=== PATIENT | female | born 1985 | race Two or more races ===

== ENCOUNTER → 2020-04-25 09:28 | Outpatient (BNVA) | payer OTHER, SELFPAY | PROVIDERS: PCP Nurse Practitioner Family; Referring Provider Nurse Practitioner Family; Visit Provider Advanced Practice Midwife | DX: Z76.89 Persons encountering health services in other specified circumstances (principal) ==

== ENCOUNTER 2020-05-03 16:48 | Emergency (ER) | payer OTHER, SELFPAY | END 2020-05-03 18:51 | disposition left against medical advice (07) | LOC: HO.ED 20:12 | PROVIDERS: Emergency Provider Emergency Medicine | DX: R42 Dizziness and giddiness (principal); R51.9 Headache, unspecified | CPT/HCPCS: 99281 ==

== ENCOUNTER 2020-06-18 15:59 | Outpatient (REF) | payer OTHER, SELFPAY | END 2020-06-18 16:00 | disposition home or self-care (01) | LOC: HO.LAB 15:59 | PROVIDERS: Visit Provider Internal Medicine | DX: Z20.828 Contact with and (suspected) exposure to other viral communicable diseases (principal) | CPT/HCPCS: C9803; U0003 ==

== ENCOUNTER 2020-06-18 16:25 | Emergency (ER) | payer OTHER, SELFPAY ==
[2020-06-18 16:33] VITALS: BP 132/80; PULSE 85; RESP 16; TEMP 36.8; O2SAT 98; BMI 24.1
--- NOTE | 2020-06-18 16:35 | ED.GENADULT ---
HPI - General Adult General Chief complaint: General Medical Stated complaint: COVID SYMPTOMS Time Seen by Provider: 06/18/20 16:35 Source: patient Mode of arrival: ambulatory Limitations: no limitations History of Present Illness HPI narrative: 35 y/o female with history of anxiety/depression presenting with 2 days of COVID-19 symptoms including: dry cough, headaches, body aches, generalized weakness and fatigue. She also reports chills and low grade fever of 99. She took Tylenol with improvement in her symptoms. She had recent exposure to COVID-19 from her ex-boyfriend. She denies shortness of breath, difficulty breathing, or chest pain. Patient reports being seen at the outpatient testing facility earlier today for COVID-19 testing and was swabbed. She wanted to be evaluated here and discuss treatment options for possible COVID. Related Data Previous Rx's Medication Instructions Recorded hydrocodone-homatropine 5 ml PO Q6H PRN #60 ml 06/18/20 ibuprofen 600 mg PO Q8H PRN #20 tab 06/18/20 Allergies Allergy/AdvReac Type Severity Reaction Status Date / Time No Known Allergies Allergy Mild NOT Verified 04/25/20 09:51 APPLICABLE Review of Systems Review of Systems: Constitutional: + Fever, + Chills ENT/Mouth: + sore throat, No Rhinorrhea, No Swallowing Difficulty Eyes: + Eye Pain, No Swelling, No Redness Cardiovascular: No Chest Pain, No SOB Respiratory: + Cough, No Sputum, No Wheezing, No dyspnea Gastrointestinal: No Nausea, No Vomiting, No Diarrhea, No abdominal Pain Musculoskeletal: No joint pain, + Myalgias Skin: No Skin Lesions, No rash Neuro: + Weakness, No Numbness, No Dizziness, + Headache Psych: + Anxiety/Panic, No Depression Heme/Lymph: No Bruising, No Lymphadenopathy PMFSH Past Medical History Attestation statement: The following information was validated with the patient. Medical History Anxiety Breast lump Depression Surgical History Hx of breast lump removal Social History Social History Alcohol intake: never Smoking Status: Never smoker Advance Directives: No Advance Directives Information Provided: Yes Gender identity: female Physical Exam Vital Signs: Vital Signs: Last Vital Signs Temp 98.3 F 06/18/20 16:33 Pulse 85 06/18/20 16:33 Resp 16 06/18/20 16:33 BP 132/80 06/18/20 16:33 Pulse Ox 98 06/18/20 16:33 Body Mass Index 24.1 Appearance: Alert. Oriented X3. No acute distress. ENT: Pharynx normal. Neck: Normal inspection. Neck supple. CVS: Normal heart rate and rhythm. Pulses normal. Respiratory: No respiratory distress. Breath sounds normal. Skin: Skin warm and dry. Normal skin color. Normal skin turgor. No rashes. Extremities: No lower extremity edema. Neuro: Oriented X 3. Non-focal Course Course Course Narrative: 35 yo female presenting with mild COVID symptoms. Vitals are stable, lungs are clear. We discussed her likelihood of positive COVID infection given her known exposure and symptom presentation. She was counseled on management and warning signs to return. No need to repeat COVID test given she was just swabbed today. She is stable for discharge. Critical Care Time Critical Care Time Critical Care Time: No Discharge Plan Discharge Clinical Impression: Acute viral syndrome Patient Disposition: Home, Self-Care Instructions: COVID-19 (Coronavirus Disease 2019) (ED) Additional Instructions: Your vital signs were normal today and your lungs were clear. Given your history it is likely your symptoms are a result of COVID-19. We will call you with the results of your test within the next 7 days. Until then, assume you are positive. Do not go out in public. Wear your mask. Was your hands frequently and disinfected surfaced in the home often. Take Tylenol as needed for fevers, muscle aches, and pains. Take over the counter cold/flu medications as needed for your symptoms. If you develop shortness of breath, difficulty breathing, chest pain or any other concerning symptom come back to the ER for further evaluation. Prescriptions: New ibuprofen 600 mg tablet 600 mg PO Q8H PRN (Reason: pain) Qty: 20 RF: 0 hydrocodone-homatropine 5-1.5 mg/5 mL syrup 5 ml PO Q6H PRN (Reason: cough) Qty: 60 RF: 0
== END 2020-06-18 17:37 | disposition home or self-care (01) ==
LOC: HO.ED 16:38
PROVIDERS: Emergency Provider Internal Medicine
DX: B34.9 Viral infection, unspecified (principal); R05 Cough; R50.9 Fever, unspecified; M79.10 Myalgia, unspecified site; R51.9 Headache, unspecified; F41.9 Anxiety disorder, unspecified; F33.1 Major depressive disorder, recurrent, moderate
CPT/HCPCS: 99283

== ENCOUNTER 2020-07-08 17:06 | Outpatient (REF) | payer OTHER, SELFPAY | END 2020-07-08 17:07 | disposition home or self-care (01) | LOC: HO.LAB 17:06 | PROVIDERS: Visit Provider Internal Medicine | DX: Z20.828 Contact with and (suspected) exposure to other viral communicable diseases (principal) | CPT/HCPCS: C9803; U0003 ==

== ENCOUNTER 2020-09-09 14:08 | Outpatient (REF) | payer OTHER, SELFPAY ==
--- NOTE | ~2020-09-09 | US_ITS ---
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 COMPARISON: Targeted ultrasound 03/11/2020 (new nodule 9:00 not previously described), 09/04/2019, 11/25/2018 (initial nodule 8:00); baseline mammography 11/25/2018. TECHNIQUE: Ultrasound left breast is targeted to the anterior medial periareolar and retroareolar breast. Grayscale imaging and color Doppler are performed without and with harmonics. FINDINGS: The nodule for follow-up 8:00 position 1 cm from nipple is similar in size and contour. There is no interval growth. Today's measurements are 0.8 x 0.5 x 0.4 cm compared with initial measurements 1.0 x 0.8 x 0.7 cm on ultrasound 11/25/2018. The other nodule for follow-up seen most recently 9:00 position 1 cm from nipple is also stable measuring 1.3 x 1.1 x 0.5 cm compared with initial measurements 1.3 x 1.1 x 0.5 cm on ultrasound 03/11/2020. There is no interval focal suspicious finding. No focal architectural abnormality or duct ectasia. No hyperemia. Results are discussed with the patient at time of visit. US/US breast LT limited IMPRESSION: Nodularity 8:00 to 9:00 position stable from prior study. ASSESSMENT: BI-RADS 3: Probably Benign RECOMMENDATION: Targeted left breast ultrasound in 6 months.
== END 2020-09-09 14:09 | disposition home or self-care (01) ==
LOC: HO.MAMMO 14:08
PROVIDERS: Visit Provider Advanced Practice Midwife
DX: N63.25 Unspecified lump in the left breast, overlapping quadrants (principal)
CPT/HCPCS: 76642

== ENCOUNTER 2020-11-15 12:00 | Outpatient (REF) | payer OTHER, SELFPAY ==
[2020-11-15 12:19] LABS: COVID-19 Test Negative (Negative)
== END 2020-11-15 12:01 | disposition home or self-care (01) ==
LOC: HO.LAB 12:00
PROVIDERS: Visit Provider Internal Medicine
DX: Z20.822 Contact with and (suspected) exposure to COVID-19 (principal)
CPT/HCPCS: 36415; 87635; C9803

== ENCOUNTER 2020-12-09 16:56 | Emergency (ER) | payer OTHER, SELFPAY ==
--- NOTE | ~2020-12-09 | XR_ITS ---
EXAMINATION: XR LUMBOSACRAL SPINE CLINICAL INFORMATION: Back pain. COMPARISON: None TECHNIQUE: Three views of the lumbosacral spine. FINDINGS: Normal vertebral body alignment. The lumbar lordosis is maintained. No acute fracture or subluxation. No loss of vertebral body or intervertebral disc height. No lytic or blastic osseous lesion. No abnormal soft tissue calcification. Bilateral facet arthropathy at L5-S1. XR/XR lumbar spine 2-3V IMPRESSION: Bilateral facet arthropathy at L5-S1.
[2020-12-09 17:24] VITALS: BP 112/73; PULSE 79; RESP 20; TEMP 36.6; O2SAT 99; BMI 23.8
--- NOTE | 2020-12-09 17:52 | ED.BACK ---
HPI - Back Pain/Injury General Chief Complaint: Back Pain/Injury Stated Complaint: back pain Source: patient Mode of arrival: ambulatory Limitations: no limitations History of Present Illness HPI Narrative: 35-year-old female with chronic lower back pain presents with lower back pain exacerbation. She states that she was walking through a small space and felt some sharp pulling in her back and now is having a difficult time standing straight up. She does not describe any symptoms indicating cauda equina, denies fevers, chills, chest pain or pressure, palpitations, shortness of breath, loss of sensation to extremities, loss of balance, abdominal pain, abdominal distention, dysuria, hematuria, and any other concerning symptoms. MD elicited complaint: back pain and back injury Pertinent past history: prior back pain Onset (ago): day(s) (One) Timing: constant Severity: severe Pain scale (0-10): 10 Similar Symptoms Previously: Yes Quality: sharp, aching and spasming Location: lumbar spine Radiation: none Exacerbating factors: movement, walking and lifting Relieving factors: none Context: turning/twisting Associated symptoms: denies other symptoms Treatments prior to arrival: NSAIDS Work related injury: No Related Data Previous Rx's Medication Instructions Recorded hydrocodone-homatropine 5 ml PO Q6H PRN #60 ml 06/18/20 ibuprofen 600 mg PO Q8H PRN #20 tab 06/18/20 cyclobenzaprine 10 mg PO TID PRN #14 tab 12/09/20 ibuprofen 600 mg PO Q6H PRN #60 tab 12/09/20 Allergies Allergy/AdvReac Type Severity Reaction Status Date / Time No Known Allergies Allergy Mild NOT Verified 12/09/20 17:24 APPLICABLE Review of Systems Review of Systems: Constitutional: No Fever, No Chills ENT/Mouth: No Ear Pain, No Hoarseness, No sore throat Eyes: No Eye Pain, No Swelling, No Redness, No Foreign Body Cardiovascular: No Chest Pain, No SOB Respiratory: No Cough, No Dyspnea Gastrointestinal: No Nausea, No Vomiting, No Diarrhea, No abdominal Pain Genitourinary: No Dysuria, No Hematuria Musculoskeletal: positive lower back pain, No Myalgias, No Joint Swelling Skin: No Skin lacerations, No rash Neuro: No Weakness, No Numbness, No Paresthesias, No Loss of Consciousness, No Dizziness, No Headache Psych: No Anxiety/Panic, No Depression Heme/Lymph: no easy bruising, no Lymphadenopathy Endocrine: No Polyuria, No Polydipsia Yes all other systems are reviewed and are negative [facility] Past Medical History Attestation statement: The following information was validated with the patient. Source: old records reviewed Medical History Anxiety Breast lump Depression Surgical History Hx of breast lump removal Social History Social History Alcohol intake: unknown Advance Directives: No Advance Directives Information Provided: No Patient : No Gender identity: female Physical Exam Vital Signs: Vital Signs: Last Vital Signs Temp 98.9 F 12/09/20 18:12 Pulse 75 12/09/20 18:12 Resp 18 12/09/20 18:12 BP 116/69 12/09/20 18:12 Pulse Ox 99 12/09/20 18:12 Body Mass Index 23.8 Appearance: Alert. Oriented X3. Moderate distress. Eyes: Pupils equal, round and reactive to light. ENT: Pharynx normal. Neck: Normal inspection. Neck supple. CVS: Normal heart rate and rhythm. Pulses normal. Respiratory: No respiratory distress. Breath sounds normal. Abdomen: Soft and nontender. Skin: Skin warm and dry. Normal skin color. Normal skin turgor. Extremities: Full range of motion to all extremities, moves all extremities against resistance, brisk capillary refill and equal pedal pulses to all extremities. No vertebral tenderness or step-offs noted. Neuro: No motor deficit. No sensory deficit. Course Course Course Narrative: 35-year-old female presents with lower back pain exacerbation after twisting into a small space. She does report chronic back pain. Does not have any symptoms indicating cauda equina, gait is balanced and coordinated, sensation pulses and strength equal to all extremities. Will order lumbar x-ray, give Toradol and lidocaine patches. X-rays indicate facet arthropathy, will have patient follow-up with pain management and physical therapy. 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 Patient verbalized understanding of and agrees to plan of care discharge home. [facility] - Back Pain/Injury Differential Diagnosis Differential diagnosis: Likely lumbar radiculopathy, strain of lumbar region and thoracic back pain Medical Records Attestation: I reviewed the patient's medical records. Lab Data Attestation: I reviewed the patient's lab results. Labs: Lab Results 12/09/20 12/09/20 Range/Units 17:42 17:42 Urine Color YELLOW Urine Appearance CLEAR Urine pH 6.5 (5.0-8.0) Ur Specific [place]ell 1.020 (1.005-1.025) Urine Protein TRACE (NEG-TRACE) MG/DL Urine Glucose (UA) NEG (NEG) MG/DL Urine Ketones NEG (NEG) MG/DL Urine Blood NEG (NEG) Urine Nitrite NEG (NEG) Ur Leukocyte Esterase NEG (NEG) Urine Test NEGATIVE (NEGATIVE) Imaging Data Lumbar spine x-ray: Attestation: I personally reviewed and interpreted this imaging study as follows: Radiologist's impression: EXAMINATION: XR LUMBOSACRAL SPINE CLINICAL INFORMATION: Back pain. COMPARISON: None TECHNIQUE: Three views of the lumbosacral spine. FINDINGS: Normal vertebral body alignment. The lumbar lordosis is maintained. No acute fracture or subluxation. No loss of vertebral body or intervertebral disc height. No lytic or blastic osseous lesion. No abnormal soft tissue calcification. Bilateral facet arthropathy at L5-S1. XR/XR lumbar spine 2-3V IMPRESSION: Bilateral facet arthropathy at L5-S1. Discharge Plan Discharge Clinical Impression: Arthropathy of facet joint Strain of lumbar region Qualifiers: Encounter type: initial encounter Qualified Code(s): S39.012A - Strain of muscle, fascia and tendon of lower back, initial encounter Patient Disposition: Home, Self-Care Instructions: Low Back Strain (ED), Degenerative Disc Disease (ED), Lower Back Exercises (ED), Core Strengthening Exercises (ED) Additional Instructions: You were evaluated for lower back pain. X-rays indicate degenerative disc disease, please follow-up with pain management, Dr Gardner and physical therapy. I prescribed cyclobenzaprine, this medication is a muscle relaxer. This medication can delay reaction time, increased risk for falls, and cause drowsiness. Do not drive or operate machinery while taking this medication. Use Tylenol or Motrin as needed for pain management. Thank you for choosing this emergency department for evaluation. Please follow-up with primary care physician as needed. Return to the emergency department for any new, concerning, or worsening symptoms. Prescriptions: New cyclobenzaprine 10 mg tablet 10 mg PO TID PRN (Reason: muscle spasm) Qty: 14 RF: 0 ibuprofen 600 mg tablet 600 mg PO Q6H PRN (Reason: pain) Qty: 60 RF: 0 No Action ibuprofen 600 mg tablet 600 mg PO Q8H PRN (Reason: pain) Qty: 20 RF: 0 hydrocodone-homatropine 5-1.5 mg/5 mL syrup 5 ml PO Q6H PRN (Reason: cough) Qty: 60 RF: 0 Referrals: Nathanael Gardner MD [Physician] - 2 days (Degenerative disc disease chronic lower back pain) Interventions: ED Discharge Assessment Last Done: 12/09/20 18:56 Discharge Date/Time: 12/09/20 18:59
[2020-12-09 17:54] LABS: Glucose Urine UA NEG (NEG); Leukocyte Esterase Urine NEG (NEG); Nitrite Urine NEG (NEG); PH 6.5 (5.0-8.0); Urine Blood NEG (NEG); Urine Ketones NEG (NEG); Urine Protein TRACE MG/DL (NEG-TRACE)
[2020-12-09 17:57] LABS: Appearance Urine CLEAR; Color Urine YELLOW
[2020-12-09 17:58] LABS: UPreg QC Valid YES; Urine Pregnancy NEGATIVE (NEGATIVE)
[2020-12-09] MEDS: Lidocaine 4 % Patch ADH..PATCH 2 PATCH TRANSDERMA (18:06)
[2020-12-09] MEDS: Ketorolac Tromethamine 60 MG/2 ML VIAL IM (18:06)
[2020-12-09 18:12] VITALS: BP 116/69; PULSE 75; RESP 18; TEMP 37.2; O2SAT 99
== END 2020-12-09 18:59 | disposition home or self-care (01) ==
PROVIDERS: Emergency Medicine Emergency Medical Services; Emergency Provider Emergency Medicine
DX: M47.816 Spondylosis without myelopathy or radiculopathy, lumbar region (principal); S39.012A Strain of muscle, fascia and tendon of lower back, initial encounter; X50.1XXA Overexertion from prolonged static or awkward postures, initial encounter; Y93.01 Activity, walking, marching and hiking; Y92.89 Other specified places as the place of occurrence of the external cause; Y99.9 Unspecified external cause status
CPT/HCPCS: 72100; 81003; 81025; 96372; 99284; J1885

== ENCOUNTER 2020-12-11 12:12 | Outpatient (REF) | payer OTHER, SELFPAY ==
[2020-12-11 13:17] LABS: MANUAL DIFF FLAG NO
[2020-12-11 13:32] LABS: Basophils Percent Auto 0.5 % (0-2); Eosinophils Absolute Auto 0.1 X10*3/uL (0.0-0.4); Eosinophils Percent Auto 1.2 % (0-4); Hematocrit 36.2 % (37-47); Hemoglobin 11.2 g/dl (12.0-16.0); Imm Gran Abs Auto 0.02 X10*3/uL (0.00-0.03); Imm Gran Pct Auto 0.4 % (0.0-0.4); Lymphocytes Absolute Auto 2.1 X10*3/uL (1.2-4.9); Lymphocytes Percent Auto 37.7 % (20-40); Mean Corpuscular HGB Conc 30.9 g/dl (31.0-35.0); Mean Corpuscular Hemoglobin 26.1 pg (27.0-33.0); Mean Corpuscular Volume 84.4 fL (80-98); Mean Platelet Volume 9.7 fL (9.4-12.3); Monocytes Absolute Auto 0.4 X10*3/uL (0.1-1.2); Monocytes Percent Auto 6.2 % (2-11); Platelet Count 315 X10*3/uL (160-400); Red Blood Count 4.29 X10*6/uL (4.20-5.50); Red Cell Distribution Width 14.2 % (11.0-16.0); White Blood Count 5.6 X10*3/uL (4.8-10.8)
[2020-12-11 13:54] LABS: Alanine Aminotransferase 16 U/L (0-31); Albumin Level 3.9 g/dL (3.5-5.0); Alkaline Phosphatase 92 U/L (39-117); Anion Gap 10 (12-20); Aspartate Amino Transferase 14 U/L (5-31); Bilirubin Total 0.5 mg/dL (0.0-1.0); Blood Urea Nitrogen 8 mg/dL (9-16); Calcium 8.8 mg/dL (8.4-10.2); Carbon Dioxide 27 mmol/L (22-29); Chloride 108 mmol/L (96-108); Cholesterol 198 mg/dL; Estimated Glomerular Filt Rate > 60; Glucose Random 82 mg/dL (60-115); Potassium 4.3 mmol/L (3.3-5.1); Sodium 141 mmol/L (135-145); Total Protein 7.1 g/dL (6.5-8.0)
[2020-12-11 14:18] LABS: Thyroid Stimulating Hormone 0.32 uIU/mL (0.32-4.0)
== END 2020-12-11 12:13 | disposition home or self-care (01) ==
LOC: HO.10HDL 12:12
PROVIDERS: Visit Provider Internal Medicine
DX: R63.5 Abnormal weight gain (principal); M54.9 Dorsalgia, unspecified; Z98.890 Other specified postprocedural states
CPT/HCPCS: 36415; 80053; 82465; 84439; 84443; 85025

== ENCOUNTER 2020-12-19 11:56 | Outpatient (REF) | payer OTHER, SELFPAY ==
[2020-12-19 13:00] LABS: MANUAL DIFF FLAG NO
[2020-12-19 13:06] LABS: Basophils Percent Auto 0.4 % (0-2); Eosinophils Absolute Auto 0.1 X10*3/uL (0.0-0.4); Eosinophils Percent Auto 0.7 % (0-4); Hematocrit 35.9 % (37-47); Hemoglobin 11.3 g/dl (12.0-16.0); Imm Gran Abs Auto 0.01 X10*3/uL (0.00-0.03); Imm Gran Pct Auto 0.1 % (0.0-0.4); Lymphocytes Percent Auto 28.9 % (20-40); Mean Corpuscular HGB Conc 31.5 g/dl (31.0-35.0); Mean Corpuscular Hemoglobin 26.3 pg (27.0-33.0); Mean Corpuscular Volume 83.7 fL (80-98); Mean Platelet Volume 9.8 fL (9.4-12.3); Monocytes Absolute Auto 0.4 X10*3/uL (0.1-1.2); Monocytes Percent Auto 6.4 % (2-11); Neutrophils Absolute Auto 4.4 X10*3/uL (2.0-8.3); Neutrophils Percent Auto 63.5 % (45-73); Platelet Count 307 X10*3/uL (160-400); Red Blood Count 4.29 X10*6/uL (4.20-5.50); Red Cell Distribution Width 13.9 % (11.0-16.0); White Blood Count 6.9 X10*3/uL (4.8-10.8)
[2020-12-19 13:49] LABS: Alanine Aminotransferase 6 U/L (0-31); Alkaline Phosphatase 87 U/L (39-117); Anion Gap 13 (12-20); Aspartate Amino Transferase 13 U/L (5-31); Bilirubin Total 0.4 mg/dL (0.0-1.0); Blood Urea Nitrogen 7 mg/dL (9-16); Calcium 8.8 mg/dL (8.4-10.2); Carbon Dioxide 23 mmol/L (22-29); Chloride 105 mmol/L (96-108); Cholesterol 201 mg/dL; Estimated Glomerular Filt Rate > 60; Glucose Random 75 mg/dL (60-115); HDL Cholesterol 63 mg/dL; LDL Cholesterol Calculated 124 mg/dl; Potassium 3.7 mmol/L (3.3-5.1); Sodium 137 mmol/L (135-145); Triglycerides 71 mg/dL
== END 2020-12-19 11:57 | disposition home or self-care (01) ==
LOC: HO.LAB 11:56
PROVIDERS: PCP Internal Medicine; Visit Provider Internal Medicine
DX: Z00.00 Encounter for general adult medical examination without abnormal findings (principal); F41.8 Other specified anxiety disorders; M54.5 Low back pain; M54.89 Other dorsalgia; R14.0 Abdominal distension (gaseous)
CPT/HCPCS: 36415; 80053; 80061; 84443; 85025; 87338

== ENCOUNTER 2020-12-27 12:41 | Outpatient (REF) | payer OTHER, SELFPAY ==
--- NOTE | ~2020-12-27 | XR_ITS ---
EXAMINATION: XR PELVIS CLINICAL INFORMATION: Pelvic and perineal pain. COMPARISON: None TECHNIQUE: AP view of the pelvis. FINDINGS: The bones and soft tissues are normal. No fracture. Sacroiliac and hip joints are normal. Pubic symphysis is normal. No abnormal soft tissue calcifications. XR/XR pelvis min 3V IMPRESSION: Normal pelvis.
== END 2020-12-27 12:42 | disposition home or self-care (01) ==
LOC: HO.XRAY 12:41
PROVIDERS: PCP Internal Medicine; Visit Provider Nurse Practitioner Family
DX: R10.2 Pelvic and perineal pain (principal); R10.30 Lower abdominal pain, unspecified; M47.817 Spondylosis without myelopathy or radiculopathy, lumbosacral region; Z79.899 Other long term (current) drug therapy
CPT/HCPCS: 72190; 99202

== ENCOUNTER → 2021-01-17 11:35 | Outpatient (BNVA) | payer OTHER, SELFPAY | PROVIDERS: Visit Provider Nurse Practitioner Family | DX: M47.817 Spondylosis without myelopathy or radiculopathy, lumbosacral region (principal); M53.3 Sacrococcygeal disorders, not elsewhere classified; R10.2 Pelvic and perineal pain | CPT/HCPCS: 99212 ==

== ENCOUNTER 2021-02-28 10:00 | Outpatient (RCR) | payer OTHER, SELFPAY | END 2021-03-03 14:08 | disposition home or self-care (01) | LOC: HO.PT 10:00 | PROVIDERS: PCP Internal Medicine; Visit Provider Nurse Practitioner Family | DX: M47.817 Spondylosis without myelopathy or radiculopathy, lumbosacral region (principal) | CPT/HCPCS: 97110; 97112; 97140; 97150; 97161 ==

== ENCOUNTER 2021-03-14 14:16 | Outpatient (REF) | payer OTHER, SELFPAY ==
--- NOTE | ~2021-03-14 | US_ITS ---
EXAMINATION: US DIAGNOSTIC ULTRASOUND BREAST, LEFT CLINICAL INFORMATION: 36-year-old with 2 medial retroareolar nodules left breast, likely fibroadenomas. Follow-up. COMPARISON: Targeted ultrasound 09/09/2020, 03/11/2020 (new nodule 9:00 not previously described), 09/04/2019, 11/25/2018 (initial nodule 8:00); baseline mammography 11/25/2018. TECHNIQUE: Ultrasound left breast is targeted to the anteromedial aspect. Grayscale imaging and color Doppler are performed without and with harmonics. FINDINGS: There are no interval suspicious findings. The 2 nodules for follow-up are stable. There is no interval new significant mass or architectural abnormality. No focal duct ectasia. Nodule 8:00 position 1 cm from nipple is similar in size and contour. Current measurements are 7 x 5 x 5 mm compared with prior exam measurement 8 x 5 x 4 mm, and initial ultrasound measurements 10 x 8 x 7 mm on 11/25/2018. This is now considered benign, most likely fibroadenoma. Most recently demonstrated nodule 9:00 position 1 cm from nipple is without significant change in size or contour. Current measurements are 12 x 10 x 5 mm compared with prior measurements of 13 x 11 x 5 mm and initial measurements on ultrasound 03/11/2020 of 13 x 11 x 5 mm. 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 Results are discussed with the patient at time of visit. US/US breast LT limited IMPRESSION: 1. Nodularity anterior medial left breast stable from prior targeted ultrasound exams. 2. Nodule at 8:00 is unchanged in size for 2 years and now considered benign, likely fibroadenoma. 3. Nodule at 9:00 position will be reassessed again in 12 months to complete long-term surveillance. ASSESSMENT: BI-RADS 3: Probably Benign RECOMMENDATION: Targeted ultrasound left breast in 12 months. This patient's information was entered into a reminder system with a target due date for their next mammogram.
== END 2021-03-14 14:17 | disposition home or self-care (01) ==
LOC: HO.MAMMO 14:16
PROVIDERS: PCP Internal Medicine; Visit Provider Advanced Practice Midwife
DX: N63.25 Unspecified lump in the left breast, overlapping quadrants (principal); R92.2 Inconclusive mammogram
CPT/HCPCS: 76642

== ENCOUNTER 2021-12-17 09:30 | Outpatient (REF) | payer OTHER, SELFPAY ==
[2021-12-17 09:52] LABS: MANUAL DIFF FLAG NO
[2021-12-17 10:03] LABS: Basophils Percent Auto 0.5 % (0-2); Eosinophils Percent Auto 0.7 % (0-4); Hematocrit 36.5 % (37.0-47.0); Hemoglobin 11.5 g/dl (12.0-16.0); Imm Gran Abs Auto 0.01 X10*3/uL (0.00-0.03); Imm Gran Pct Auto 0.2 % (0.0-0.4); Lymphocytes Absolute Auto 2.5 X10*3/uL (1.2-4.9); Lymphocytes Percent Auto 57.5 % (20-40); Mean Corpuscular HGB Conc 31.5 g/dl (31.0-35.0); Mean Corpuscular Hemoglobin 25.9 pg (27.0-33.0); Mean Corpuscular Volume 82.2 fL (80.0-98.0); Monocytes Absolute Auto 0.5 X10*3/uL (0.1-1.2); Monocytes Percent Auto 11.5 % (2-11); Neutrophils Absolute Auto 1.3 x10*3/uL (2.0-8.3); Neutrophils Percent Auto 29.6 % (45-73); Platelet Count 269 X10*3/uL (160-400); Red Blood Count 4.44 X10*6/uL (4.20-5.50); Red Cell Distribution Width 15.1 % (11.0-16.0); White Blood Count 4.3 X10*3/uL (4.8-10.8)
[2021-12-17 10:37] LABS: Alanine Aminotransferase 15 U/L (0-31); Albumin Level 3.9 g/dL (3.5-5.0); Alkaline Phosphatase 92 U/L (39-117); Anion Gap 11 (12-20); Aspartate Amino Transferase 14 U/L (5-31); Bilirubin Total 0.6 mg/dL (0.0-1.0); Blood Urea Nitrogen 8 mg/dL (9-16); Calcium 8.7 mg/dL (8.4-10.2); Carbon Dioxide 25 mmol/L (22-29); Chloride 108 mmol/L (96-108); Cholesterol 226 mg/dL; Estimated Glomerular Filt Rate > 60; Glucose Random 93 mg/dL (60-115); HDL Cholesterol 60 mg/dL; LDL Cholesterol Calculated 154 mg/dl; Potassium 4.6 mmol/L (3.3-5.1); Sodium 139 mmol/L (135-145); Total Protein 7.2 g/dL (6.5-8.0); Triglycerides 63 mg/dL
[2021-12-17 10:51] LABS: Thyroid Stimulating Hormone 0.42 uIU/mL (0.32-4.0)
[2021-12-17 11:02] LABS: Vitamin B12 229 pg/mL (200-900)
== END 2021-12-17 09:31 | disposition home or self-care (01) ==
LOC: HO.LAB 09:30
PROVIDERS: PCP Internal Medicine; Visit Provider Internal Medicine
DX: G62.9 Polyneuropathy, unspecified (principal)
CPT/HCPCS: 36415; 80053; 80061; 82607; 84443; 85025

== ENCOUNTER 2022-03-17 12:38 | Outpatient (REF) | payer OTHER, SELFPAY ==
--- NOTE | ~2022-03-17 | US_ITS ---
EXAMINATION: US DIAGNOSTIC ULTRASOUND BREAST, LEFT CLINICAL INFORMATION: Probable fibroadenoma periareolar left breast for follow-up surveillance, initially noted on the left breast ultrasound 03/11/2020. COMPARISON: Left breast ultrasound 03/14/2021, 09/09/2020, 03/11/2020, 09/04/2019, 11/25/2018; mammography 11/25/2018. TECHNIQUE: Ultrasound left breast is targeted to the medial retroareolar and periareolar breast. Grayscale imaging and color Doppler are performed without and with harmonics. FINDINGS: The oval solid nodule for follow-up 9:00 position is stable to borderline decreased measuring approximately 1.2 x 0.5 x 1.2 cm. Initial measurements are 1.3 x 0.5 x 1.1 cm on ultrasound 03/11/2020. This most likely represents a fibroadenoma. It is now considered to be benign given the stability. There is a smaller adjacent chronic solid nodule is decreased in size from prior studies, current measurements 0.6 x 0.4 x 0.5 cm in original dimensions 1.0 x 0.7 x 0.8 cm on ultrasound 11/25/2018. This most likely represents a fibroadenoma and considered to be benign given the stability/decrease. There is no interval new cystic or solid mass or architectural abnormality. Results are discussed with the patient at time of visit. 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 ASSESSMENT: BI-RADS 2: Benign RECOMMENDATION: Routine annual mammography screening, beginning age 40, or earlier as clinical risk factors warrant. This patient's information was entered into a reminder system with a target due date for their next mammogram.
== END 2022-03-17 12:39 | disposition home or self-care (01) ==
LOC: HO.MAMMO 12:38
PROVIDERS: PCP Internal Medicine; Visit Provider Advanced Practice Midwife
DX: N63.25 Unspecified lump in the left breast, overlapping quadrants (principal)
CPT/HCPCS: 76642

== ENCOUNTER 2024-04-26 10:47 | Outpatient (REF) | payer OTHER, SELFPAY ==
[2024-04-26 11:13] LABS: MANUAL DIFF FLAG NO
[2024-04-26 12:01] LABS: Basophils Percent Auto 0.8 % (0-2); Eosinophils Absolute Auto 0.1 X10*3/uL (0.0-0.4); Eosinophils Percent Auto 1.5 % (0-4); Hematocrit 38.9 % (37.0-47.0); Hemoglobin 12.4 g/dl (12.0-16.0); Imm Gran Abs Auto 0.01 X10*3/uL (0.00-0.03); Imm Gran Pct Auto 0.2 % (0.0-0.4); Lymphocytes Percent Auto 38.2 % (20-40); Mean Corpuscular HGB Conc 31.9 g/dl (31.0-35.0); Mean Corpuscular Hemoglobin 27.3 pg (27.0-33.0); Mean Corpuscular Volume 85.7 fL (80.0-98.0); Mean Platelet Volume 9.2 fL (9.4-12.3); Monocytes Absolute Auto 0.4 X10*3/uL (0.1-1.2); Monocytes Percent Auto 8.4 % (2-11); Neutrophils Absolute Auto 2.7 x10*3/uL (2.0-8.3); Neutrophils Percent Auto 50.9 % (45-73); Platelet Count 296 X10*3/uL (160-400); Red Blood Count 4.54 X10*6/uL (4.20-5.50); Red Cell Distribution Width 13.9 % (11.0-16.0); White Blood Count 5.2 X10*3/uL (4.8-10.8)
[2024-04-26 12:42] LABS: Alanine Aminotransferase 15 U/L (0-31); Albumin Level 4.3 g/dL (3.5-5.0); Alkaline Phosphatase 72 U/L (39-117); Anion Gap 9 (12-20); Aspartate Amino Transferase 14 U/L (5-31); Bilirubin Total 0.6 mg/dL (0.0-1.0); Blood Urea Nitrogen 8 mg/dL (9-16); Calcium 9.5 mg/dL (8.4-10.2); Carbon Dioxide 27 mmol/L (22-29); Chloride 108 mmol/L (96-108); Cholesterol 225 mg/dL (<200); Estimated Glomerular Filt Rate > 60; Glucose Random 86 mg/dL (60-115); HDL Cholesterol 80 mg/dL (>40); LDL Cholesterol Calculated 134 mg/dL (<100); Potassium 4.2 mmol/L (3.3-5.1); Sodium 140 mmol/L (135-145); Total Protein 7.5 g/dL (6.5-8.0); Triglycerides 57 mg/dL (<150)
[2024-04-26 14:20] LABS: CT PCR NOT DETECTED (Not Detect.); NG PCR NOT DETECTED (Not Detect.)
== END 2024-04-26 10:48 | disposition home or self-care (01) ==
LOC: HO.LAB 10:47
PROVIDERS: PCP Internal Medicine; Visit Provider Internal Medicine
DX: Z00.00 Encounter for general adult medical examination without abnormal findings (principal); E78.00 Pure hypercholesterolemia, unspecified; Z11.3 Encounter for screening for infections with a predominantly sexual mode of transmission; Z12.4 Encounter for screening for malignant neoplasm of cervix
CPT/HCPCS: 80053; 80061; 85025; 87491; 87591